=== PATIENT | female | born 1995 | race Caucasian/White ===

== ENCOUNTER 2017-10-25 15:32 | Emergency (ER) | payer MEDICAID ==
[~2017-10-25] VITALS: Ht 154.9 cm; Wt 47.6 kg
[2017-10-25 15:48] VITALS: BP 104/59
== END 2017-10-25 18:57 | disposition left against medical advice (07) ==
LOC: ER 15:32
DX: R07.81 Pleurodynia (principal); Z53.21 Procedure and treatment not carried out due to patient leaving prior to being seen by health care provider